=== PATIENT | male | born 1995 | race Native Hawaiian/Other Pacific Islander ===

== ENCOUNTER 2018-10-12 16:02 | Emergency (ER) | payer OTHER ==
[~2018-10-12] VITALS: Ht 167.6 cm; Wt 56.7 kg
[2018-10-12] MEDS ORDERED: LEVE500T5 PO (16:11)
[2018-10-12 18:50] VITALS: BP 126/84; TEMP 97.9
== END 2018-10-12 19:00 | disposition home or self-care (01) ==
LOC: ED 16:02
PROC: 0JCK0ZZ Extirpation of Matter from Left Hand Subcutaneous Tissue and Fascia, Open Approach (ICD-10-PCS; principal; 2018-10-12)
DX: S61.241A Puncture wound with foreign body of left index finger without damage to nail, initial encounter (principal); S62.661A Nondisplaced fracture of distal phalanx of left index finger, initial encounter for closed fracture; W29.4XXA Contact with nail gun, initial encounter
CPT/HCPCS: 99283; J7040

== ENCOUNTER 2019-10-24 07:42 | Outpatient (CLI) | payer OTHER ==
[~2019-10-24 07:42] MED LIST: LEVE500T5 PO
== END 2019-10-24 20:54 | disposition home or self-care (01) ==
LOC: RESP 07:42
DX: G40.909 Epilepsy, unspecified, not intractable, without status epilepticus (principal)
CPT/HCPCS: 36415; 82542; 85651

== ENCOUNTER 2019-10-25 11:14 | Outpatient (CLI) | payer OTHER | END 2019-10-25 20:22 | disposition home or self-care (01) | LOC: MRI 11:14 | DX: G40.909 Epilepsy, unspecified, not intractable, without status epilepticus (principal) | CPT/HCPCS: A9576 ==

== ENCOUNTER 2020-08-16 08:50 | Outpatient (CLI) | payer OTHER | END 2020-08-16 23:27 | disposition home or self-care (01) | LOC: RESP 08:50 | DX: G40.909 Epilepsy, unspecified, not intractable, without status epilepticus (principal) ==

== ENCOUNTER 2020-09-20 20:25 | Outpatient (CLI) | payer OTHER | END 2020-09-20 23:20 | disposition home or self-care (01) | LOC: LABW 20:25 | DX: G40.919 Epilepsy, unspecified, intractable, without status epilepticus (principal); Z51.81 Encounter for therapeutic drug level monitoring | CPT/HCPCS: 36415; 82542 ==

== ENCOUNTER 2021-08-17 16:05 | Inpatient (IN) | payer OTHER ==
[2021-08-17] VITALS (9 sets, daily range): BP systolic 102–126; BP diastolic 50–69; TEMP 98.4–98.6; Ht 167.6 cm; Wt 61.0 kg
[~2021-08-17] VITALS: Ht 167.6 cm; Wt 61.0 kg
[2021-08-17 17:02] LABS: PLATELET COUNT 296 K/uL (142-355)
[2021-08-17 17:07] LABS: POTASSIUM 3.3 mmol/L (3.6-5.2); SODIUM 145 mmol/L (136-145)
[2021-08-17 17:15] LABS: PARTIAL THROMBOPLASTIN TIME 24.2 SECONDS (24.5-33.6)
[2021-08-18 00:09] VITALS: BP 102/58; TEMP 98.6
[2021-08-18] MEDS ORDERED: TRILEPTAL300 MG PO (01:08)
[2021-08-18 04:23] VITALS: BP 120/75; TEMP 97.7
[2021-08-18 08:00] VITALS: BP 110/61; TEMP 98.1
[2021-08-18 09:07] LABS: PLATELET COUNT 217 K/uL (142-355)
[2021-08-18 09:22] LABS: POTASSIUM 3.7 mmol/L (3.6-5.2)
[2021-08-18 12:00] VITALS: BP 155/81; TEMP 98.4
== END 2021-08-18 15:00 | disposition home or self-care (01) | DRG 101 ==
LOC: ED 16:05 → MED/SURG 18:55
PROVIDERS: ADMIT Family Medicine; ATTEND Internal Medicine Endocrinology, Diabetes & Metabolism
DX: G40.802 Other epilepsy, not intractable, without status epilepticus (principal); Z72.0 Tobacco use; D72.828 Other elevated white blood cell count; E87.6 Hypokalemia
CPT/HCPCS: 36415; 51702; 80053; 80183; 80307; 81000; 82550; 82948; 84484; 85027; 85610; 85730; 87635; 93005; 96360; 96372; 96374; 96375; 96376; 99285; J1200; J2060; J2250; J2550; J3486; U0003

== ENCOUNTER 2021-12-04 07:30 | Outpatient (CLI) | payer BC ==
[~2021-12-04 07:30] MED LIST changes: +TRILEPTAL300 MG PO
== END 2021-12-04 18:50 | disposition home or self-care (01) ==
LOC: RESP 07:30
PROVIDERS: ATTEND Specialist
DX: G40.009 Localization-related (focal) (partial) idiopathic epilepsy and epileptic syndromes with seizures of localized onset, not intractable, without status epilepticus (principal)

== ENCOUNTER 2022-12-25 18:22 | Emergency (ER) | payer OTHER ==
[~2022-12-25] VITALS: Ht 167.6 cm; Wt 60.8 kg
[2022-12-25 19:05] VITALS: BP 146/82; TEMP 99
== END 2022-12-25 19:10 | disposition home or self-care (01) ==
LOC: ED 18:22
DX: L03.012 Cellulitis of left finger (principal); W22.8XXA Striking against or struck by other objects, initial encounter; Y92.89 Other specified places as the place of occurrence of the external cause
CPT/HCPCS: 90471; 90715; 96372; 99283; J1885